=== PATIENT | female | born 1980 | race Caucasian/White ===

== ENCOUNTER 2016-12-14 04:42 | Emergency (ER) | payer SELFPAY | END 2016-12-14 05:27 | disposition home or self-care (01) | LOC: ER 04:42 | DX: K02.9 Dental caries, unspecified (principal); G43.909 Migraine, unspecified, not intractable, without status migrainosus; E89.0 Postprocedural hypothyroidism; F17.210 Nicotine dependence, cigarettes, uncomplicated; Z88.5 Allergy status to narcotic agent; Z88.8 Allergy status to other drugs, medicaments and biological substances; Z79.899 Other long term (current) drug therapy ==